=== PATIENT | male | born 1970 | race Caucasian/White ===

== ENCOUNTER 2021-12-24 10:00 | Emergency (ER) | payer SELFPAY ==
[~2021-12-24] VITALS: Ht 172.7 cm; Wt 95.3 kg
[2021-12-24 10:45] LABS: BASOPHILS % (AUTO) 0.2 % (0.0-5.0); HEMATOCRIT 42.4 % (42-54); LYMPHOCYTES % (AUTO) 5.2 % (21.0-51.0); MEAN CORPUSCULAR HGB CONC 33.5 g/dL (32.0-36.0); MEAN CORPUSCULAR VOLUME 92.6 fL (79-99); MONOCYTES % (AUTO) 3.1 % (3.0-13.0); PLATELET COUNT (AUTO) 192 K/uL (130-400); RED BLOOD CELL COUNT(AUTO) 4.58 MIL/uL (4.50-6.20); RED CELL DISTRIBUTION WIDTH 12.4 % (11.0-15.5); WHITE BLOOD COUNT (AUTO) 12.7 K/uL (4.8-10.8)
[2021-12-24 10:53] LABS: CREATININE 1.5 mg/dL (0.5-1.5); POTASSIUM 3.8 mmol/L (3.5-5.1)
[2021-12-24 10:58] LABS: APPEARANCE,URINE Clear (CLEAR); BILIRUBIN,URINE Negative (NEGATIVE); COLOR,URINE Yellow (YELLOW); GLUCOSE, URINE (UA) 500 mg/dL (NEGATIVE); KETONES,URINE Trace mg/dL (NEGATIVE); LEUKOCYTE ESTERASE ,URINE Negative (NEGATIVE); NITRATE,URINE Negative (NEGATIVE); OCCULT BLOOD,URINE Nonhemolyzed Trace (NEGATIVE); PH,URINE 7.5 (5.0-8.0); PROTEIN,URINE Trace mg/dL (NEGATIVE)
[2021-12-24 11:05] LABS: ALBUMIN 4.2 g/dL (3.5-5.0); BILIRUBIN,TOTAL 0.8 mg/dL (0.2-1.0); MAGNESIUM 1.7 mg/dL (1.80-2.40); TOTAL PROTEIN, SERUM 7.8 g/dL (6.0-8.3)
[2021-12-24 11:19] LABS: BACTERIA,URINE None Seen /HPF (None Seen); RBC,URINE 0-1 /HPF (0-1); SQUAMOUS EPITHELIAL CELL,UR 0-2 /HPF (0-2); WBC,URINE None Seen /HPF (0-1)
[2021-12-24 12:07] LABS: B-TYPE NATRIURETIC PEPTIDE 36 pg/mL (0-100)
[2021-12-24] MEDS ORDERED: ONDANSETRON 4MG INJ ONE (12:24)
[2021-12-24] MEDS ORDERED: MORPHINE 4 MG SYG ONE (12:25)
[2021-12-24] MEDS ORDERED: KETOROLAC 30MG VIAL (30MG/ML) ONE (12:25)
[2021-12-24] MEDS ORDERED: 0.9%NACL 1000ML 1,000 ML IV SCH (12:30)
[2021-12-24] MEDS ORDERED: ONDANSETRON 4MG INJ IVP SCH (12:30)
[2021-12-24] MEDS: TAMSULOSIN HCL 0.4 MG CAP.ER.24H PO SCH ×2 (12:30→14:26)
[2021-12-24] MEDS ORDERED: MORPHINE 4 MG SYG IV SCH (12:30)
[2021-12-24] MEDS ORDERED: KETOROLAC 30MG VIAL (30MG/ML) IV SCH (12:30)
[2021-12-24] MEDS ORDERED: BISACODYL 10 MG SUPP.RECT RC ONE (12:31)
[2021-12-24] MEDS: MAGNESIUM CITRATE 296 ML SOLUTION PO SCH ×3 (13:30→14:26)
[2021-12-24] MEDS ORDERED: MAGNESIUM OXIDE 400 MG TABLET PO ONE (15:56)
[2021-12-24] MEDS ORDERED: TAMS-1 PO (16:00)
[2021-12-24] MEDS ORDERED: IBUP-2070 PO (16:00)
[2021-12-24] MEDS ORDERED: ONDA4TAB10 PO (16:00)
[2021-12-24] MEDS ORDERED: MAGNESIUM OXIDE 400 MG TABLET PO SCH (16:00)
[2021-12-24 16:03] VITALS: BP 142/76
== END 2021-12-24 16:16 | disposition home or self-care (01) ==
LOC: EDH 10:00
DX: N20.1 Calculus of ureter (principal); E83.42 Hypomagnesemia
CPT/HCPCS: 36415; 74176; 80053; 81001; 82550; 83690; 83735; 83880; 84484; 85025; 93005; 96374; 96375; 99285; J1885; J2270; J2405